=== PATIENT | male | born 1995 | race Caucasian/White ===

== ENCOUNTER 2020-06-30 20:24 | Emergency (ER) | payer SELFPAY ==
[~2020-06-30] VITALS: Ht 177.8 cm; Wt 72.6 kg
[2020-06-30 20:58] LABS: BILIRUBIN,URINE NEGATIVE (NEGATIVE); CLARITY,URINE SL CLOUDY; COLOR,URINE YELLOW; GLUCOSE, URINE (UA) NEGATIVE (NEGATIVE); KETONES,URINE NEGATIVE (NEGATIVE); LEUKOCYTE ESTERASE ,URINE NEGATIVE (NEGATIVE); NITRITE,URINE NEGATIVE (NEGATIVE); PH,URINE 6.5 (5-9); PROTEIN,URINE 1+ (NEGATIVE)
[2020-06-30] MEDS ORDERED: KETOROLAC 30 MG/ML VIAL IVP STA (20:58)
[2020-06-30] MEDS ORDERED: LACTATED RINGERS 1,000 ML IV ONE (21:00)
[2020-06-30] MEDS ORDERED: ONDANSETRON 4 MG/2 ML (SDV) Z0FRAN IVP ONE (21:00)
[2020-06-30 21:04] LABS: BACTERIA,URINE NEGATIVE /HPF
[2020-06-30 21:09] LABS: AMPHETAMINE SCREEN, URINE NEGATIVE (NEGATIVE); BARBITURATE SCREEN URINE NEGATIVE (NEGATIVE); BENZODIAZEPINES SCREEN URINE NEGATIVE (NEGATIVE); CANNABINOID SCREEN, URINE NEGATIVE (NEGATIVE); COCAINE SCREEN URINE NEGATIVE (NEGATIVE); METHADONE STAT NEGATIVE (NEGATIVE); METHAMPHETAMINE SCREEN URINE S NEGATIVE (NEGATIVE); OPIATE SCREEN URINE NEGATIVE (NEGATIVE); OXYCODONE STAT NEGATIVE (NEGATIVE); PROPOXYPHENE STAT NEGATIVE (NEGATIVE); TRICYCLIC ANTIDEPRESSANTS SCRE NEGATIVE (NEGATIVE)
[2020-06-30 21:24] LABS: BASOPHILS # (AUTO) 0.1 10^3/uL (0.0-0.1); BASOPHILS % (AUTO) 0 % (0-10); EOSINOPHILS # (AUTO) 0.4 10^3/uL (0.0-0.3); EOSINOPHILS % (AUTO) 4 % (0-10); HEMATOCRIT 44 % (40-54); HEMOGLOBIN 14.8 g/dL (13.3-17.7); LYMPHOCYTES # (AUTO) 1.6 10^3/uL (1.0-4.0); LYMPHOCYTES % (AUTO) 14 % (12-44); MEAN CORPUSCULAR HEMOGLOBIN 31 pg (25-34); MEAN CORPUSCULAR HGB CONC 34 g/dL (32-36); MEAN CORPUSCULAR VOLUME 92 fL (80-99); MONOCYTES # (AUTO) 0.6 10^3/uL (0.0-1.0); MONOCYTES % (AUTO) 5 % (0-12); NEUTROPHILS # (AUTO) 9.2 10^3/uL (1.8-7.8); NEUTROPHILS % (AUTO) 77 % (42-75); PLATELET COUNT 319 10^3/uL (130-400); WHITE BLOOD COUNT 11.9 10^3/uL (4.3-11.0)
[2020-06-30 21:43] LABS: ALBUMIN 4.7 GM/DL (3.2-4.5); CHLORIDE 103 MMOL/L (98-107); POTASSIUM 3.7 MMOL/L (3.6-5.0); SODIUM 139 MMOL/L (135-145)
[2020-06-30 21:44] LABS: AMYLASE 89 U/L (25-125); CALCIUM 8.9 MG/DL (8.5-10.1)
[2020-06-30 21:45] LABS: GLUCOSE 119 MG/DL (70-105); TOTAL PROTEIN 7.5 GM/DL (6.4-8.2)
[2020-06-30 21:46] LABS: CARBON DIOXIDE 25 MMOL/L (21-32)
[2020-06-30 21:47] LABS: BILIRUBIN,TOTAL 0.4 MG/DL (0.1-1.0)
[2020-06-30 21:49] LABS: ALKALINE PHOSPHATASE 69 U/L (40-136); CREATININE SERUM 1.09 MG/DL (0.60-1.30); GFR ESTIMATED > 60
[2020-06-30 21:50] LABS: BUN/CREATININE RATIO 10
[2020-06-30 21:52] LABS: ALANINE AMINOTRANSFERASE 37 U/L (0-55); LIPASE 20 U/L (8-78)
--- NOTE | 2020-06-30 21:58 | Diagnostic Imaging Report ---
PROCEDURE: CT urinary tract, rule out kidney stone. TECHNIQUE: Multiple contiguous axial images were obtained through the abdomen and pelvis without the use of intravenous contrast. Auto Exposure Controls were utilized during the CT exam to meet ALARA standards for radiation dose reduction. INDICATION: Left flank pain, onset this morning. Kidney stones. COMPARISON: None. FINDINGS: The lung bases are clear. The heart is normal in size. There is no pericardial effusion. The liver appears normal. The spleen is normal. The pancreas is normal. The adrenal glands are normal. There is no right hydronephrosis or hydroureter. No calculi are identified along the course of the ureter. There are nonobstructing calculi in the right kidney, the largest measuring up to 2 mm. The left kidney demonstrates mild hydronephrosis and there is mild hydroureter. There is an obstructing calculus at the left ureterovesicular junction which measures 2 mm. There are additional nonobstructing calculi in the left kidney, also measuring up to 2 mm. The bowel loops are nondistended without obstruction. The appendix is normal. No free fluid or free air is seen. No acute osseous abnormality is seen. IMPRESSION: 1. Obstructing 2 mm calculus at the left ureterovesicular junction causing mild left hydroureteronephrosis. 2. Additional nonobstructing calculi in the kidneys, bilaterally. Dictated by: Dictated on workstation # [id number]
--- NOTE | 2020-06-30 22:01 | Diagnostic Imaging Report ---
HISTORY: Kidney stones. TECHNIQUE: Frontal view of the abdomen. COMPARISON: CT from the same day. FINDINGS: There are multiple phleboliths in the pelvis. There is a small density closer to the midline which may represent the obstructing calculus seen on the prior CT at the ureterovesicular junction. Additional nonobstructing calculi are also seen in the kidneys. No distended loops of small bowel are seen and no free air is seen. IMPRESSION: Hyperdensity in the pelvis near the midline may represent the obstructing stone seen on the prior CT. Dictated by: Dictated on workstation # [id number]
[2020-06-30] MEDS ORDERED: RX-ONDANSETRON 4 MG ODT (ZOFRAN) PPK #4 PO STA (22:27)
[2020-06-30] MEDS ORDERED: RX-HYDROCODONE/APAP 5/325 MG #4 TAB PK PO PRN (22:30)
[2020-06-30] MEDS ORDERED: TAMSULOSIN 0.4 MG (FLOMAX) CAP PO SCH (22:30)
--- NOTE | 2020-06-30 22:39 | ED Abdominal Pain ---
General Chief Complaint: Abdominal/GI Problems Stated Complaint: L SIDE ABD AND LOWER BACK PAIN Nursing Triage Note: PT AMBULATE TO ROOM 05 WITH C/O LEFT FLANK/LEFT ABD PAIN STARTING THIS MORNING. PT REPORTS HX OF KIDNEY STONES. Sepsis Screen: No Definite Risk Source of Information: Patient History of Present Illness Date Seen by Provider: Jun 30, 2020 Time Seen by Provider: 20:50 Initial Comments PT ARRIVES VIA POV FROM HOME PT STATES THAT HE THINKS HE IS PASSING A KIDNEY STONE HAS HAPPENED ONCE BEFORE APPROXIMATELY A YEAR AGO--NEVER SOUGHT CARE, BUT HAD SIMILAR PAIN, AND THEN URINATED AND STONE CAME OUT. PT STATES HIS FATHER HAS HAD KIDNEY STONES PT STATES HE HAS HAD URINARY FREQUENCY, URGENCY, SMALL AMOUNTS SINCE THIS AM. NO PAIN ON URINATION NO BLOOD IN URINE PT HAS HAD INTERMITTENT SHARP PAINS IN LLQ RADIATING TO LEFT FLANK--WORSE FOR THE LAST 2 HOURS HAS HAD NAUSEA WITH THE PAIN AND VOMITED X 1. STATES HE TOOK 1000 MG OF TYLENOL AND A TUMS FOR THESE SYMPTOMS, BUT VOMITED THEM BACK UP. HAS HAD "COLD CHILLS" BUT HAS NOT HAD ANY FEVER WHEN HE CHECKED HIS TEMP. C/O FEELING A LITTLE DIZZY AT TIMES--MOSTLY WITH THE PAIN HAS HAD DIARRHEA X 4-5 TODAY, NO BLACK/BLOODY/TARRY STOOLS PCP: PT IS [employer] STUDENT Allergies and Home Medications Allergies Coded Allergies: No Known Allergies (Verified Allergy, Unknown, 06/30/20) Home Medications Ciprofloxacin HCl 500 Mg Tablet, 500 MG PO BID Prescribed by: SANDY SALAZAR on 06/30/202239 Hydrocodone/Acetaminophen 1 Each Tablet, 1 EACH PO Q4-6 HOURS PRN for PAIN Prescribed by: SANDY SALAZAR on 06/30/202239 Ketorolac Tromethamine 10 Mg Tablet, 10 MG PO Q6H Prescribed by: SANDY SALAZAR on 06/30/202239 Ondansetron 4 Mg Tab.rapdis, 4 MG PO Q4H Prescribed by: SANDY SALAZAR on 06/30/202239 Tamsulosin HCl 0.4 Mg Cap, 0.4 MG PO DAILY Prescribed by: SANDY SALAZAR on 06/30/202239 Patient Home Medication List Home Medication List Reviewed: Yes Review of Systems Review of Systems Constitutional: see HPI EENTM: No Symptoms Reported Respiratory: No Symptoms Reported Cardiovascular: No Symptoms Reported Gastrointestinal: See HPI, Abdominal Pain, Diarrhea, Nausea, Vomiting Genitourinary: See HPI, Frequency, Flank Pain, Urgency Musculoskeletal: see HPI, back pain Skin: no symptoms reported Psychiatric/Neurological: No Symptoms Reported Endocrine: No Symptoms Reported Hematologic/Lymphatic: No Symptoms Reported Past [id number] Hx Past Med/Social Hx: Reviewed and Corrections made Patient Social History Alcohol Use: Occasionally Uses Drug of Choice: DENIES Smoking Status: Never a Smoker 2nd Hand Smoke Exposure: No Recent Infectious Disease Expo: No Recent Hopitalizations: No Seasonal Allergies Seasonal Allergies: No Past Medical History Surgeries: Yes (LEFT HAND FX/ORIF) Orthopedic Respiratory: No Cardiac: No Neurological: No Genitourinary: Yes Kidney Stones Gastrointestinal: No Musculoskeletal: Yes (LEFT HAND FX/ORIF) Fractures Endocrine: No HEENT: No Cancer: No Psychosocial: No Integumentary: No Blood Disorders: No Physical Exam Vital Signs Vital Signs - First Documented 06/30/20 06/30/20 20:36 22:54 Temp 36.6 Pulse 76 Resp 18 B/P (MAP) 150/106 (121) Pulse Ox 100 O2 Delivery Room Air Capillary Refill : Less Than 3 Seconds Height/Weight/BMI Height: '" Weight: lbs. oz. kg; 22.00 BMI Method: General Appearance: WD/WN, no apparent distress, other (PT CALM, QUIET. 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, no motor/sensory deficits, alert, normal mood/affect, oriented x 3 Skin: warm/dry, pallor; No rash Progress/Results/Core Measures Results/Orders Lab Results Laboratory Tests Test 06/30/20 20:31 06/30/20 21:16 Range/Units Urine Color YELLOW Urine Clarity SL CLOUDY Urine pH 6.5 5-9 Urine Specific [place] 1.025 H 1.016-1.022 Urine Protein 1+ H NEGATIVE Urine Glucose (UA) NEGATIVE NEGATIVE Urine Ketones NEGATIVE NEGATIVE Urine Nitrite NEGATIVE NEGATIVE Urine Bilirubin NEGATIVE NEGATIVE Urine Urobilinogen 0.2 < = 1.0 MG/DL Urine Leukocyte Esterase NEGATIVE NEGATIVE Urine RBC (Auto) 3+ H NEGATIVE Urine RBC 2-5 H /HPF Urine WBC NONE /HPF Urine Squamous Epithelial Cells NONE /HPF Urine Crystals NONE /LPF Urine Bacteria NEGATIVE /HPF Urine Casts NONE /LPF Urine Mucus NEGATIVE /LPF Urine Culture Indicated NO Urine Opiates Screen NEGATIVE NEGATIVE Urine Oxycodone Screen NEGATIVE NEGATIVE Urine Methadone Screen NEGATIVE NEGATIVE Urine Propoxyphene Screen NEGATIVE NEGATIVE Urine Barbiturates Screen NEGATIVE NEGATIVE Ur Tricyclic Antidepressants Screen NEGATIVE NEGATIVE Urine Phencyclidine Screen NEGATIVE NEGATIVE Urine Amphetamines Screen NEGATIVE NEGATIVE Urine Methamphetamines Screen NEGATIVE NEGATIVE Urine Benzodiazepines Screen NEGATIVE NEGATIVE Urine Cocaine Screen NEGATIVE NEGATIVE Urine Cannabinoids Screen NEGATIVE NEGATIVE White Blood Count 11.9 H 4.3-11.0 10^3/uL Red Blood Count 4.79 4.30-5.52 10^6/uL Hemoglobin 14.8 13.3-17.7 g/dL Hematocrit 44 40-54 % Mean Corpuscular Volume 92 80-99 fL Mean Corpuscular Hemoglobin 31 25-34 pg Mean Corpuscular Hemoglobin Concent 34 32-36 g/dL Red Cell Distribution Width 11.8 10.0-14.5 % Platelet Count 319 130-400 10^3/uL Mean Platelet Volume 10.0 9.0-12.2 fL Immature Granulocyte % (Auto) 0 % Neutrophils (%) (Auto) 77 H 42-75 % Lymphocytes (%) (Auto) 14 12-44 % Monocytes (%) (Auto) 5 0-12 % Eosinophils (%) (Auto) 4 0-10 % Basophils (%) (Auto) 0 0-10 % Neutrophils # (Auto) 9.2 H 1.8-7.8 10^3/uL Lymphocytes # (Auto) 1.6 1.0-4.0 10^3/uL Monocytes # (Auto) 0.6 0.0-1.0 10^3/uL Eosinophils # (Auto) 0.4 H 0.0-0.3 10^3/uL Basophils # (Auto) 0.1 0.0-0.1 10^3/uL Immature Granulocyte # (Auto) 0.0 0.0-0.1 10^3/uL Sodium Level 139 135-145 MMOL/L Potassium Level 3.7 3.6-5.0 MMOL/L Chloride Level 103 98-107 MMOL/L Carbon Dioxide Level 25 21-32 MMOL/L Anion Gap 11 5-14 MMOL/L Blood Urea Nitrogen 11 7-18 MG/DL Creatinine 1.09 0.60-1.30 MG/DL Estimat Glomerular Filtration Rate > 60 BUN/Creatinine Ratio 10 Glucose Level 119 H 70-105 MG/DL Calcium Level 8.9 8.5-10.1 MG/DL Corrected Calcium 8.5-10.1 MG/DL Total Bilirubin 0.4 0.1-1.0 MG/DL Aspartate Amino Transf (AST/SGOT) 24 5-34 U/L Alanine Aminotransferase (ALT/SGPT) 37 0-55 U/L Alkaline Phosphatase 69 40-136 U/L Total Protein 7.5 6.4-8.2 GM/DL Albumin 4.7 H 3.2-4.5 GM/DL Amylase Level 89 25-125 U/L Lipase 20 8-78 U/L My Orders Orders - SANDY SALAZAR DO Ed Iv/Invasive Line Start (06/30/20 20:51) Amylase (06/30/20 20:51) Cbc With Automated Diff (06/30/20 20:51) Comprehensive Metabolic Panel (06/30/20 20:51) Lipase (06/30/20 20:51) Ua Culture If Indicated (06/30/20 20:51) Drug Screen Stat (Urine) (06/30/20 20:52) Ed Iv/Invasive Line Start (06/30/20 20:58) Lactated Ringers (Lr 1000 Ml Iv Solution (06/30/20 21:00) Ondansetron Injection (Zofran Injectio (06/30/20 21:00) Ketorolac Injection (Toradol Injection) (06/30/20 20:58) Ct Abd/Pelvis Wo(Kidney Stone) (06/30/20 20:58) Abdomen/Kub 1view (06/30/20 20:58) Rx-Hydrocodone/Apap 5-325 Mg (Rx-Vicodin (06/30/20 22:30) Rx-Ondansetron Po (Rx-Zofran Po) (06/30/20 22:27) Tamsulosin Capsule (Flomax Capsule) (06/30/20 22:30) Medications Given in ED Vital Signs/I&O 06/30/20 06/30/20 20:36 22:54 Temp 36.6 Pulse 76 88 Resp 18 16 B/P (MAP) 150/106 (121) 137/84 Pulse Ox 100 O2 Delivery Room Air Room Air 07/01/20 00:00 Intake Total 1000 ml Balance 1000 ml Blood Pressure Mean: 121 Progress Progress Note : Progress Note GIVEN IV FLUIDS, TORADOL AND ZOFRAN WITH COMPLETE RESOLUTION OF SYMPTOMS Diagnostic Imaging Comments KUB--PER RADIOLOGIST REPORT AT 2213 FINDINGS: There are multiple phleboliths in the pelvis. There is a small density closer to the midline which may represent the obstructing calculus seen on the prior CT at the ureterovesicular junction. Additional nonobstructing calculi are also seen in the kidneys. No distended loops of small bowel are seen and no free air is seen. IMPRESSION: Hyperdensity in the pelvis near the midline may represent the obstructing stone seen on the prior CT. CT ABDOMEN/PELVIS--PER RADIOLOGIST REPORT AT 2213 FINDINGS: The lung bases are clear. The heart is normal in size. There is no pericardial effusion. The liver appears normal. The spleen is normal. The pancreas is normal. The adrenal glands are normal. There is no right hydronephrosis or hydroureter. No calculi are identified along the course of the ureter. There are nonobstructing calculi in the right kidney, the largest measuring up to 2 mm. The left kidney demonstrates mild hydronephrosis and there is mild hydroureter. There is an obstructing calculus at the left ureterovesicular junction which measures 2 mm. There are additional nonobstructing calculi in the left kidney, also measuring up to 2 mm. The bowel loops are nondistended without obstruction. The appendix is normal. No free fluid or free air is seen. No acute osseous abnormality is seen. IMPRESSION: 1. Obstructing 2 mm calculus at the left ureterovesicular junction causing mild left hydroureteronephrosis. 2. Additional nonobstructing calculi in the kidneys, bilaterally. Reviewed: Reviewed by Me Departure Impression Primary Impression: Left ureteral calculus Disposition: 01 HOME, SELF-CARE Condition: Improved Departure-Patient Inst. Referrals: JENNIFER GRIFFITH MD [facility] [place] Patient Instructions: Kidney Stones (DC), How to Strain Your Urine, Kidney Stone Diet Add. Discharge Instructions: HOME, REST STRAIN ALL URINE--RETURN ANY STONES TO DR'S OFFICE FOLLOW UP WITH DR. GRIFFITH NEXT WEEK FOR FURTHER CARE--CALL FRIDAY MORNING TO SCHEDULE APPOINTMENT RETURN TO ER IF SYMPTOMS WORSEN All discharge instructions reviewed with patient and/or family. Voiced understanding. Scripts Ondansetron (Ondansetron Odt) 4 Mg Tab.rapdis 4 MG PO Q4H for Nausea/Vomiting, #10 TAB Prov: SADNY SALAZAR DO 06/30/20 Ketorolac Tromethamine (Ketorolac Tromethamine) 10 Mg Tablet 10 MG PO Q6H for Pain, #15 TAB Prov: SANDY SALAZAR DO 06/30/20 Hydrocodone/Acetaminophen (Hydrocodone-Acetamin 5-325 mg) 1 Each Tablet 1 EACH PO Q4-6 HOURS PRN for PAIN, #20 TAB Prov: SANDY SALAZAR DO 06/30/20 Tamsulosin HCl (Flomax) 0.4 Mg Cap 0.4 MG PO DAILY, #10 CAP Prov: SANDY SALAZAR DO 06/30/20 Ciprofloxacin HCl (Ciprofloxacin HCl) 500 Mg Tablet 500 MG PO BID, #14 TAB Prov: SANDY SALAZAR DO 06/30/20 SANDY SALAZAR DO Jun 30, 2020 22:38
[2020-06-30] MEDS ORDERED: CIPR500T5 PO (22:40)
[2020-06-30] MEDS ORDERED: ONDA4TAB11 PO (22:40)
[2020-06-30] MEDS ORDERED: KETO10TA PO (22:40)
[2020-06-30] MEDS ORDERED: TMSL.4C PO (22:40)
[2020-06-30] MEDS ORDERED: ACHD5005 PO (22:40)
[2020-06-30 22:54] VITALS: BP 137/84
== END 2020-06-30 22:54 | disposition home or self-care (01) ==
LOC: ER 20:29
DX: N13.2 Hydronephrosis with renal and ureteral calculous obstruction (principal)
CPT/HCPCS: 36415; 74018; 74176; 80053; 80306; 81000; 82150; 83690; 85025